=== PATIENT | female | born 1985 | race Caucasian/White ===

== ENCOUNTER 2018-06-06 09:32 | Emergency (ER) | payer BC, MEDICAID ==
[2018-06-06] MEDS ORDERED: NORMAL SALINE 1000 ML 1,000 ML IV ONE (09:56)
--- NOTE | 2018-06-06 09:58 | ER Document Report ---
ED Medical Screen (RME) - General Chief Complaint: Palpitations Stated Complaint: HEART RATE ISSUE Time Seen by Provider: 06/06/18 09:49 Primary Care Provider: RONI WARD MD [Primary Care Provider] - Follow up as needed Notes: Patient is a 32-year-old female with type 1 diabetes mellitus that presents to the emergency department for chief complaint of palpitations. Patient states she is felt her heart racing since last night, went to urgent care today, her heart rate was in the 1 teens, she was advised to come to the emergency department to be evaluated for this. Denies prior history of issues with tachycardia, she does report incidentally that she discontinue taking her Latuda, as needed Xanax, and Adderall about 2 weeks ago, but she does not think that this is related. She does state that her diabetes has been less controlled recently having glucose numbers in the 3 and 400s.. ROS: Other than noted above, the 12 point review of systems was reviewed with the patient and were negative, all pertinent findings are included in the HPI. PHYSICAL EXAMINATION: Vital signs reviewed. GENERAL: Well-appearing, well-nourished and in no acute distress. HEAD: Atraumatic, normocephalic. EYES: Pupils equal round extraocular movements intact, conjunctiva are normal. ENT: Nares patent NECK: Normal range of motion CV: Heart rate tachycardic, regular rhythm LUNGS: No respiratory distress Musculoskeletal: Normal range of motion NEUROLOGICAL: Normal speech PSYCH: Normal mood, normal affect. MDM: Patient seen and examined for rapid initial assessment. Vital signs reviewed. EKG reviewed, no STEMI A comprehensive ED assessment and evaluation of the patient, analysis of test results and completion of the medical decision making process will be conducted by additional ED providers. *Note is created using voice recognition software and may contain spelling, syntax or grammatical errors. TRAVEL OUTSIDE OF THE [place] IN LAST 30 DAYS: No - Related Data Allergies/Adverse Reactions: Sulfa (Sulfonamide Antibiotics) Allergy (Unknown, Verified 06/06/18 09:33) Hives Past Medical History - Social History Chew tobacco use (# tins/day): No Frequency of alcohol use: None Drug Abuse: None Pulmonary Medical History: Reports: Hx Asthma Denies: Hx Tuberculosis Endocrine Medical History: Reports: Hx Diabetes Mellitus Type 1 Renal/ Medical History: Denies: Hx Peritoneal Dialysis Past Surgical History: Reports: Hx Abdominal Surgery, Hx Section - x1. Denies: Hx Pacemaker - Immunizations Immunizations up to date: Yes Hx Diphtheria, Pertussis, Tetanus Vaccination: Yes Physical Exam - Vital signs Vitals: Temp Pulse Resp BP Pulse Ox 98.2 F 85 16 149/115 H 99 06/06/18 09:48 06/06/18 09:48 06/06/18 09:48 06/06/18 09:48 06/06/18 09:48 Course - Vital Signs Vital signs: Temp Pulse Resp BP Pulse Ox 98.2 F 85 16 149/115 H 99 06/06/18 09:48 06/06/18 09:48 06/06/18 09:48 06/06/18 09:48 06/06/18 09:48 Doctor's Discharge - Discharge Referrals: RONI WARD MD [Primary Care Provider] - Follow up as needed
--- NOTE | 2018-06-06 10:40 | RADIOLOGY REPORT (SQ) ---
EXAM DESCRIPTION: CHEST 2 VIEWS COMPLETED DATE/TIME: 06/06/2018 10:31 am REASON FOR STUDY: tachycardia COMPARISON: None. EXAM PARAMETERS: NUMBER OF VIEWS: two views TECHNIQUE: Digital Frontal and Lateral radiographic views of the chest acquired. RADIATION DOSE: NA LIMITATIONS: none FINDINGS: LUNGS AND PLEURA: No opacities, masses or pneumothorax. No pleural effusion. MEDIASTINUM AND HILAR STRUCTURES: No masses or contour abnormalities. HEART AND VASCULAR STRUCTURES: Heart normal size. No evidence for failure. BONES: No acute findings. HARDWARE: None in the chest. OTHER: No other significant finding. IMPRESSION: NO ACUTE RADIOGRAPHIC FINDING IN THE CHEST. TECHNICAL DOCUMENTATION: JOB ID: [id number] [email or web address] All Rights Reserved Reading location - IP/workstation name: [email or web address]
[2018-06-06 10:52] LABS: ABSOLUTE BASOPHILS # (AUTO) 0.1 10^3/uL (0.0-0.2); ABSOLUTE EOSINOPHILS # (AUTO) 0.3 10^3/uL (0.0-0.6); ABSOLUTE LYMPHOCYTES (AUTO) 1.2 10^3/uL (0.5-4.7); ABSOLUTE MONOCYTES (AUTO) 0.2 10^3/uL (0.1-1.4); BASOPHILS % (AUTO) 1.3 % (0-2); EOSINOPHILS % (AUTO) 5.9 % (0-6); HEMATOCRIT 44.5 % (36.0-47.0); HEMOGLOBIN 15.4 g/dL (12.0-15.5); MEAN CORPUSCULAR HEMOGLOBIN 27.8 pg (27.0-33.4); MEAN CORPUSCULAR HGB CONC 34.7 g/dL (32.0-36.0); MEAN CORPUSCULAR VOLUME 80 fl (80-97); MONOCYTES % (AUTO) 3.7 % (3-13); PLATELET COUNT 291 10^3/uL (150-450); RED BLOOD COUNT 5.55 10^6/uL (3.72-5.28); RED CELL DISTRIBUTION WIDTH 13.3 % (11.5-14.0); SEGMENTED NEUTROPHILS % (AUTO) 69.1 % (42-78); TOTAL CELLS COUNTED % (AUTO) 100 %; WHITE BLOOD COUNT 5.7 10^3/uL (4.0-10.5)
[2018-06-06 11:13] LABS: APPEARANCE,URINE SLIGHTLY-CLOUDY; BILIRUBIN,URINE NEGATIVE (NEGATIVE); COLOR,URINE YELLOW; GLUCOSE, URINE NEGATIVE (NEGATIVE); KETONES,URINE NEGATIVE (NEGATIVE); LEUKOCYTE ESTERASE,URINE NEGATIVE (NEGATIVE); NITRITE,URINE NEGATIVE (NEGATIVE); PROTEIN,URINE NEGATIVE (NEGATIVE); URINE SPECIFIC GRAVITY 1.014; UROBILINOGEN,URINE NEGATIVE mg/dL (<2.0)
[2018-06-06 11:28] LABS: ALANINE AMINOTRANSFERASE 11 U/L (9-52); ALBUMIN 4.7 g/dL (3.5-5.0); ALKALINE PHOSPHATASE 84 U/L (38-126); ANION GAP 12 (5-19); ASPARTATE AMINO TRANSFERASE 16 U/L (14-36); BILIRUBIN,DIRECT 0.2 mg/dL (0.0-0.4); BILIRUBIN,TOTAL 0.4 mg/dL (0.2-1.3); BLOOD UREA NITROGEN 13 mg/dL (7-20); CALCIUM 9.7 mg/dL (8.4-10.2); CARBON DIOXIDE 28 mmol/L (22-30); CHLORIDE 103 mmol/L (98-107); GLUCOSE 147 mg/dL (75-110); POTASSIUM 4.2 mmol/L (3.6-5.0); SODIUM 142.5 mmol/L (137-145); TOTAL PROTEIN 7.8 g/dL (6.3-8.2)
[2018-06-06 11:45] LABS: FREE T4 (FREE THYROXINE) 1.06 ng/dL (0.78-2.19)
[2018-06-06 11:59] LABS: THYROID STIMULATING HORMONE 1.84 uIU/mL (0.47-4.68)
--- NOTE | 2018-06-06 13:10 | EKG REPORT ---
SEVERITY:- NORMAL ECG - SINUS RHYTHM : Confirmed by: Nikhil Marshall MD 06-Jun-2018 13:09:57
--- NOTE | 2018-06-06 13:30 | ER Document Report ---
ED General - General Chief Complaint: Palpitations Stated Complaint: HEART RATE ISSUE Time Seen by Provider: 06/06/18 09:49 Primary Care Provider: RONI WARD MD [NO LOCAL MD] - Follow up as needed Mode of Arrival: Ambulatory Information source: Patient Notes: Patient is a 32-year-old female with past medical history of type 1 diabetes who presents the emergency department chief complaint of tachycardia. Patient reports that she started feeling like she was having palpitations last night. She states the palpitations are intermittent but persisted on to this morning. Patient denies any chest pain or shortness of breath. Patient denies any associated symptoms such as nausea, vomiting or diarrhea. TRAVEL OUTSIDE OF THE [place] IN LAST 30 DAYS: No - Related Data Allergies/Adverse Reactions: Sulfa (Sulfonamide Antibiotics) Allergy (Unknown, Verified 06/06/18 09:33) Hives Past Medical History - General Information source: Patient - Social History Smoking Status: Never Smoker Chew tobacco use (# tins/day): No Frequency of alcohol use: None Drug Abuse: None Family History: Reviewed & Not Pertinent, DM - uncle Patient has suicidal ideation: No Patient has homicidal ideation: No Pulmonary Medical History: Reports: Hx Asthma Denies: Hx Tuberculosis Endocrine Medical History: Reports: Hx Diabetes Mellitus Type 1 Renal/ Medical History: Denies: Hx Peritoneal Dialysis Past Surgical History: Reports: Hx Abdominal Surgery, Hx Section - x1. Denies: Hx Pacemaker - Immunizations Immunizations up to date: Yes Hx Diphtheria, Pertussis, Tetanus Vaccination: Yes Hx Pneumococcal Vaccination: 04/14/08 Review of Systems - Review of Systems Constitutional: No symptoms reported EENT: No symptoms reported Cardiovascular: Palpitations Respiratory: No symptoms reported Gastrointestinal: No symptoms reported Genitourinary: No symptoms reported Female Genitourinary: No symptoms reported Musculoskeletal: No symptoms reported Skin: No symptoms reported Hematologic/Lymphatic: No symptoms reported Neurological/Psychological: No symptoms reported Physical Exam - Vital signs Vitals: Temp Pulse Resp BP Pulse Ox 98.2 F 85 16 149/115 H 99 06/06/18 09:48 06/06/18 09:48 06/06/18 09:48 06/06/18 09:48 06/06/18 09:48 - Notes Notes: PHYSICAL EXAMINATION: GENERAL: Well-appearing, well-nourished and in no acute distress. HEAD: Atraumatic, normocephalic. EYES: Pupils equal round and reactive to light, extraocular movements intact, conjunctiva are normal. ENT: Nares patent, oropharynx clear without exudates. Moist mucous membranes. NECK: Normal range of motion, supple without lymphadenopathy LUNGS: Breath sounds clear to auscultation bilaterally and equal. No wheezes rales or rhonchi. HEART: Regular rate and rhythm without murmurs ABDOMEN: Soft, nontender, nondistended abdomen. No guarding, no rebound. No masses appreciated. Female : deferred Musculoskeletal: Normal range of motion, no pitting or edema. No cyanosis. NEUROLOGICAL: Cranial nerves grossly intact. Normal speech, normal gait. Normal sensory, motor exams PSYCH: Normal mood, normal affect. SKIN: Warm, Dry, normal turgor, no rashes or lesions noted. Course - Re-evaluation Re-evalutation: Labs as recorded are unremarkable. CBC, CMP, TSH and free T4 were all unremarkable. EKG shows a sinus rhythm, rate of 91, normal axis, no ST segment elevations or depressions. Chest x-ray is unremarkable. Patient has not had any abnormal cardiac rhythms identified while she has been in the emergency department. Patient denies any physical symptoms such as chest pain or shortness of breath. Patient will be discharged home with instructions to follow-up with her primary care provider for possible consideration of Holter monitoring. Patient given ED return precautions and she verbalizes understanding of same. - Vital Signs Vital signs: Temp Pulse Resp BP Pulse Ox 98.2 F 85 15 132/92 H 96 06/06/18 09:48 06/06/18 09:48 06/06/18 13:35 06/06/18 13:35 06/06/18 13:35 - Laboratory Result Diagrams: 06/06/18 10:16 06/06/18 10:16 Laboratory results interpreted by me: 06/06/18 06/06/18 06/06/18 10:16 10:16 10:20 RBC 5.55 H Glucose 147 H POC Glucose 148 H Discharge - Discharge Clinical Impression: Palpitations Hypertension Qualifiers: Hypertension type: unspecified Qualified Code(s): I10 - Essential (primary) hypertension Condition: Stable Disposition: HOME, SELF-CARE Additional Instructions: Palpitations (Irregular/Rapid Heartrate) Irregular or rapid heartbeat is called "palpitation." To diagnose the cause of palpitation, we have to "catch it in the act" with an EKG. Sinus Tachycardia: This is a rapid (but NORMAL) rhythm that can be due to fever, pain, anxiety, lack of sleep, over-exertion, or drugs. Cold medications, caffeine, and diet pills are particularly likely to cause tachycardia. Usually, all that's required is rest, reassurance, and avoiding caffeine, alcohol, nicotine, and unnecessary medicines. Paroxysmal Atrial Tachycardia (PAT): This abnormally rapid heartbeat is caused by a "short circuit" in the electrical system of the heart. It is not dangerous, unless other heart disease is present. These attacks of PAT may occur occasionally for years. Medication is available for treatment. Paroxysmal Atrial Fibrillation or Atrial Flutter: This is irregular electrical activity in the upper heart chamber. These abnormal rhythms often occur with valve disease or in hearts damaged by hardening of the arteries. These rhythms usually require further testing, for example a cardiac echo. Premature Beats: Extra beats occur more commonly after caffeine, nicotine, alcohol, cold pills, diet pills. Emotional stress or fatigue also provoke them. Extra beats are only dangerous when heart disease is present. They usually need no treatment. If they're frequent, or if evidence of heart disease develops, medication can be given to suppress them. If we were unable to "catch" the palpitations on EKG, you should try to get an EKG immediately if the symptoms begin again. Contact the physician at once if you develop persistent lightheadedness, shortness of breath, chest pain, or swelling of the ankles. Your blood work today was normal. Your EKG did not show any elevated heart rates or abnormal heart rhythm. Your blood pressure was elevated here in the emergency department today it is very important that you contact your primary care provider on Friday to schedule an appointment for this week. They may want to consider placing you on a Holter monitor. They may also consider starting you on a blood pressure medication. Please return to the emergency department for any worsening or new symptoms. Referrals: RONI WARD MD [NO LOCAL MD] - Follow up as needed
[2018-06-06 13:42] VITALS: BP 132/92
== END 2018-06-06 13:42 | disposition home or self-care (01) ==
LOC: ER 09:32
DX: R00.2 Palpitations (principal); I10 Essential (primary) hypertension; E10.9 Type 1 diabetes mellitus without complications; J45.909 Unspecified asthma, uncomplicated; Z88.2 Allergy status to sulfonamides
CPT/HCPCS: 93005; 99285; 96360; 36415; 84439; 82962; 84443; 85025; 81025; 80053; 81001; 84484; 71046; 93010; J7030